=== PATIENT | female | born 1995 | race Two or more races ===

== ENCOUNTER 2022-01-03 10:48 | Emergency (ER) | payer SELFPAY ==
[2022-01-03 10:58] VITALS: BP 129/81; PULSE 91; TEMP 98.6; BMI 26.6
[2022-01-03] MEDS ORDERED: KETOROLAC TROMETHAMINE 30 MG/1 ML VIAL IM ONE (11:54)
[2022-01-03] MEDS ORDERED: LIDOCAINE 5% TOPICAL PATCH TP ONE (11:54)
[2022-01-03] MEDS ORDERED: diazePAM 5 MG TABLET PO ONE (11:54)
[2022-01-03] MEDS ORDERED: KETOROLAC TROMETHAMINE 30 MG/1 ML VIAL ONE (12:05)
[2022-01-03] MEDS ORDERED: LIDOCAINE 5% TOPICAL PATCH ONE (12:05)
[2022-01-03] MEDS ORDERED: diazePAM 5 MG TABLET ONE (12:05)
[2022-01-03] MEDS ORDERED: LIDOCAINE PATCH REMOVAL MC ONE (22:00)
== END 2022-01-03 14:05 | disposition home or self-care (01) ==
LOC: JERFT 10:48 → JER 10:48
PROC: 3E0234Z Introduction of Serum, Toxoid and Vaccine into Muscle, Percutaneous Approach (ICD-10-PCS; principal; 2022-01-03)
DX: S30.0XXA Contusion of lower back and pelvis, initial encounter (principal); S20.211A Contusion of right front wall of thorax, initial encounter; W00.0XXA Fall on same level due to ice and snow, initial encounter
CPT/HCPCS: 71101-TC-RT-FY; 72100-TC-FY; 72170-TC-FY; 99285-25